=== PATIENT | male | born 1975 | race Caucasian/White ===

== ENCOUNTER 2017-02-14 21:46 | Emergency (ER) | payer OTHER ==
[2017-02-14 23:21] VITALS: BP 137/100
== END 2017-02-14 23:21 | disposition other institution (70) ==
LOC: ED 21:46
DX: Z02.89 Encounter for other administrative examinations (principal)

== ENCOUNTER 2017-05-31 07:07 | Emergency (ER) | payer OTHER ==
[~2017-05-31] VITALS: Ht 162.6 cm; Wt 76.8 kg
[2017-05-31 09:15] VITALS: BP 121/76
== END 2017-05-31 09:26 | disposition home or self-care (01) ==
LOC: ED 07:07
DX: S93.402A Sprain of unspecified ligament of left ankle, initial encounter (principal); X58.XXXA Exposure to other specified factors, initial encounter; Y92.89 Other specified places as the place of occurrence of the external cause; Y93.89 Activity, other specified; Y99.8 Other external cause status
CPT/HCPCS: Q0092

== ENCOUNTER 2017-05-31 14:50 | Emergency (ER) | payer OTHER ==
[2017-05-31 16:05] VITALS: BP 121/79
== END 2017-05-31 16:05 | disposition other institution (70) ==
LOC: ED 14:50
DX: S93.402A Sprain of unspecified ligament of left ankle, initial encounter (principal); F12.10 Cannabis abuse, uncomplicated; F17.210 Nicotine dependence, cigarettes, uncomplicated; X58.XXXA Exposure to other specified factors, initial encounter; Y92.89 Other specified places as the place of occurrence of the external cause; Y93.89 Activity, other specified; Y99.8 Other external cause status

== ENCOUNTER 2017-05-31 14:50 | Emergency (ER) | payer OTHER | END 2017-05-31 16:05 | disposition other institution (70) | LOC: ED 14:50 | DX: Z02.89 Encounter for other administrative examinations (principal) ==

== ENCOUNTER 2017-11-30 11:45 | Emergency (ER) | payer OTHER ==
[~2017-11-30] VITALS: Ht 172.7 cm; Wt 74.8 kg
[2017-11-30 11:47] VITALS: Ht 172.7 cm; Wt 74.8 kg
[2017-11-30 13:07] VITALS: BP 137/97
== END 2017-11-30 13:08 | disposition other institution (70) ==
LOC: ED 11:45
DX: Z02.89 Encounter for other administrative examinations (principal)

== ENCOUNTER 2017-12-01 10:10 | Emergency (ER) | payer OTHER ==
[~2017-12-01] VITALS: Ht 175.3 cm; Wt 81.6 kg
[2017-12-01 10:15] VITALS: Ht 175.3 cm; Wt 81.6 kg
[2017-12-01 10:19] VITALS: BP 104/62
== END 2017-12-01 12:57 | disposition home or self-care (01) ==
LOC: ED 10:10
DX: F10.129 Alcohol abuse with intoxication, unspecified (principal)

== ENCOUNTER 2017-12-09 21:10 | Emergency (ER) | payer OTHER ==
[~2017-12-09] VITALS: Ht 165.1 cm; Wt 72.6 kg
[2017-12-09 21:23] VITALS: Ht 165.1 cm; Wt 72.6 kg
[2017-12-10 00:41] VITALS: BP 143/87
== END 2017-12-10 00:41 | disposition home or self-care (01) ==
LOC: ED 21:10
DX: G89.29 Other chronic pain (principal); M79.652 Pain in left thigh
CPT/HCPCS: J1885

== ENCOUNTER 2018-10-28 21:46 | Emergency (ER) | payer OTHER ==
[~2018-10-28] VITALS: Ht 162.6 cm; Wt 77.1 kg
[2018-10-28 23:21] LABS: BASOPHIL % 0.7 % (0-2); PLATELET COUNT 269 x10^3mcL (130-400); RED CELL DISTRIBUTION WIDTH 13.4 % (11.5-14.5)
[2018-10-28 23:32] LABS: CALCIUM 8.3 mg/dL (8.5-10.1); CARBON DIOXIDE 22.1 mmol/L (21-32); CHLORIDE SERUM 97 mmol/L (98-107); CREATININE SERUM 0.8 mg/dL (0.7-1.3); GFR1 > 60 mL/min; GLUCOSE SERUM 105 mg/dL (74-106); SODIUM SERUM 133 mmol/L (136-145)
[2018-10-28 23:37] LABS: ALBUMIN 3.8 g/dL (3.4-5.0); ALKALINE PHOSPHATASE 91 U/L (46-116); ALT/SGPT 277 U/L (16-63); AST/SGOT 467 U/L (15-37); BILIRUBIN TOTAL 0.37 mg/dL (0.20-1.00); TOTAL PROTEIN, SERUM 7.8 g/dL (6.4-8.2)
[2018-10-29 07:14] LABS: UA SPECIFIC GRAVITY <=1.005 (1.005-1.035); microscopic required? YES; urine erythrocyte 1+ (NEGATIVE)
[2018-10-29 08:10] LABS: AMPHETAMINE QUAL UR NONE DETECTED (See below)
[2018-10-29 08:50] VITALS: BP 142/95
== END 2018-10-29 08:50 | disposition home or self-care (01) ==
LOC: ED 21:46
PROVIDERS: Emergency Medicine
DX: M79.661 Pain in right lower leg (principal); F10.129 Alcohol abuse with intoxication, unspecified; Z98.890 Other specified postprocedural states
CPT/HCPCS: 36415; J2270

== ENCOUNTER 2019-09-12 17:08 | Emergency (ER) | payer OTHER ==
[~2019-09-12] VITALS: Ht 175.3 cm; Wt 81.6 kg
[2019-09-12 17:10] VITALS: BP 142/95; Ht 175.3 cm; Wt 81.6 kg
== END 2019-09-12 17:55 | disposition other institution (70) ==
LOC: ED 17:08
DX: Z02.89 Encounter for other administrative examinations (principal)

== ENCOUNTER 2019-10-12 12:08 | Emergency (ER) | payer OTHER ==
[~2019-10-12] VITALS: Ht 172.7 cm; Wt 77.1 kg
[2019-10-12 12:11] VITALS: Ht 172.7 cm; Wt 77.1 kg
[2019-10-12 14:00] VITALS: BP 124/75
== END 2019-10-12 14:00 | disposition home or self-care (01) ==
LOC: ED 12:08
DX: J40 Bronchitis, not specified as acute or chronic (principal); F10.129 Alcohol abuse with intoxication, unspecified; F12.10 Cannabis abuse, uncomplicated; Z59.0 Homelessness; Y90.9 Presence of alcohol in blood, level not specified
CPT/HCPCS: 82962; Q0092

== ENCOUNTER 2020-08-03 00:19 | Emergency (ER) | payer OTHER ==
[~2020-08-03] VITALS: Ht 167.6 cm; Wt 83.9 kg
[2020-08-03 00:40] VITALS: BP 136/99; Ht 167.6 cm; Wt 83.9 kg
== END 2020-08-03 01:53 | disposition left against medical advice (07) ==
LOC: ED 00:19
DX: Z53.21 Procedure and treatment not carried out due to patient leaving prior to being seen by health care provider (principal)

== ENCOUNTER 2020-09-06 14:04 | Emergency (ER) | payer OTHER ==
[~2020-09-06] VITALS: Ht 162.6 cm; Wt 72.6 kg
[2020-09-06 14:15] VITALS: Ht 162.6 cm; Wt 72.6 kg
[2020-09-06 15:06] LABS: BASOPHIL % 1.3 % (0.2-1.5); RED CELL DISTRIBUTION WIDTH 13.4 % (12.1-16.2)
[2020-09-06 15:08] LABS: PLATELET COUNT 54 x10^3mcL (152-348)
[2020-09-06 15:13] LABS: CALCIUM 8.3 mg/dL (8.5-10.1); CARBON DIOXIDE 25.6 mmol/L (21-32); CHLORIDE SERUM 98 mmol/L (98-107); CREATININE SERUM 0.8 mg/dL (0.7-1.3); GFR1 > 60 mL/min; GLUCOSE SERUM 115 mg/dL (74-106); POTASSIUM SERUM 3.5 mmol/L (3.5-5.1); SODIUM SERUM 133 mmol/L (136-145)
[2020-09-06 17:10] VITALS: BP 108/70
== END 2020-09-06 17:10 | disposition short-term general hospital (02) ==
LOC: ED 14:04
PROVIDERS: Emergency Medicine
DX: S06.5X0A Traumatic subdural hemorrhage without loss of consciousness, initial encounter (principal); S01.01XA Laceration without foreign body of scalp, initial encounter; Z20.822 Contact with and (suspected) exposure to COVID-19; W18.39XA Other fall on same level, initial encounter; Y93.89 Activity, other specified; Y92.89 Other specified places as the place of occurrence of the external cause; Y99.8 Other external cause status
CPT/HCPCS: G0480; J0690; J1953; J2001